=== PATIENT | male | born 1950 | race Caucasian/White ===

== ENCOUNTER 2018-11-08 21:19 | Emergency (ER) | payer MEDICARE ==
[~2018-11-08] VITALS: Ht 177.8 cm; Wt 79.7 kg
[2018-11-08] MEDS ORDERED: KETOROLAC 30 MG/1 ML IVPush ONE (21:30)
[2018-11-08] MEDS ORDERED: ONDANSETRON ODT 4 MG PO ONE (21:30)
--- NOTE | 2018-11-08 21:37 | NUR ---
pt to room from lobby
[2018-11-08] MEDS ORDERED: KETOROLAC 30 MG/1 ML ONE (21:55)
[2018-11-08] MEDS ORDERED: ONDANSETRON 2MG/ML, 2ML ONE (21:55)
[2018-11-08] MEDS ORDERED: MORPHINE SULFATE 4 MG/ML, 1ML ONE (21:55)
[2018-11-08] MEDS ORDERED: SODIUM CHLORIDE 0.9% 1,000ML IV ONE (22:00)
[2018-11-08] MEDS: MORPHINE SULFATE 4 MG/ML, 1ML IVPush PRN (22:01)
[2018-11-08 22:02] LABS: BASOPHILS # (AUTO) 0.06 x10^3/uL (0-0.1); BASOPHILS % (AUTO) 1 % (0-1); EOSINOPHILS # (AUTO) 0.44 x10^3/uL (0-0.4); EOSINOPHILS % (AUTO) 3 % (1-7); LYMPHOCYTES # (AUTO) 3.43 x10^3/uL (1-3.4); LYMPHOCYTES % (AUTO) 26 % (22-44); MD NO; MEAN CORPUSCULAR HEMOGLOBIN 31.4 pg (27.5-34.5); MEAN CORPUSCULAR HGB CONC 33.3 g/dL (33.2-36.2); MEAN CORPUSCULAR VOLUME 94.4 fL (81-97); MEAN PLATELET VOLUME 9.1 fL (7.4-10.4); MONOCYTES % (AUTO) 9 % (2-9); NEUTROPHILS # (AUTO) 8.15 x10^3/uL (1.8-6.8); NEUTROPHILS % (AUTO) 61 % (42-75); PLATELET COUNT 247 x10^3/uL (130-400); RED BLOOD COUNT 4.88 x10^6/uL (4.38-5.82); RED CELL DISTRIBUTION WIDTH 12.9 % (9.4-14.8)
[2018-11-08 22:14] LABS: ALANINE AMINOTRANSFERASE 35 U/L (12-78); ALBUMIN 4.1 g/dL (3.4-5.0); ANION GAP 11 mmol/L (5-15); CHLORIDE 110 mmol/L (98-107); CREATININE 1.36 mg/dL (0.7-1.3)
[2018-11-08 22:16] LABS: ALKALINE PHOSPHATASE 70 U/L (45-117); BILIRUBIN,TOTAL 0.4 mg/dL (0.2-1.0)
--- NOTE | 2018-11-08 22:19 | NUR ---
PT PRESENTS WITH C/O OF RIGHT FLANK PAIN THAT RADIATES TO THE RLQ, PAIN 10/10. PT STATES THE PAIN STARTED TODAY. ER MD IN TO ASSESS PT. IV PLACED AND PT MEDICATED FOR PAIN PER ER MD ORDERS.
[2018-11-08] MEDS ORDERED: ONDANSETRON 2MG/ML, 2ML IVPush ONE (23:00)
[2018-11-09] MEDS ORDERED: TAMSULOSIN 0.4 MG CAP.ER.24H PO ONE
--- NOTE | 2018-11-09 00:20 | NUR ---
PT ABLE TO PROVIDE URINE AND URINE SENT TO LAB. PT RESTING ON GURNEY AND REPORTS PAIN HAS IMPROVED SINCE MEDICATIONS
[2018-11-09 00:37] LABS: MICROSCOPIC INDICATED
[2018-11-09 00:45] LABS: CULTURE INDICATED? NO
[2018-11-09] MEDS ORDERED: TAMSULOSIN 0.4 MG CAP.ER.24H ONE (01:04)
[2018-11-09] MEDS ORDERED: MORPHINE SULFATE 4 MG/ML, 1ML ONE (01:04)
[2018-11-09] MEDS: MORPHINE SULFATE 4 MG/ML, 1ML IVPush PRN (01:08)
[2018-11-09 01:09] VITALS: BP 147/72
== END 2018-11-09 01:49 | disposition home or self-care (01) ==
LOC: ED 23:31
DX: N20.2 Calculus of kidney with calculus of ureter (principal); K76.89 Other specified diseases of liver; N28.89 Other specified disorders of kidney and ureter; I10 Essential (primary) hypertension; Z87.442 Personal history of urinary calculi
CPT/HCPCS: 36415; 74176; 80053; 81001; 83690; 85025; 96361; 96374; 96375; 96376; 99284; J1885; J2270; J2405; J7030

== ENCOUNTER 2019-05-10 15:24 | Outpatient (CLI) | payer MEDICARE | END 2019-05-10 23:59 | disposition home or self-care (01) | LOC: RAD 15:24 | PROVIDERS: ATTEND Urology | DX: N20.0 Calculus of kidney (principal) | CPT/HCPCS: 74176 ==